=== PATIENT | female | born 1970 | race Two or more races ===

== ENCOUNTER 2016-11-26 01:31 | Emergency (ER) | payer OTHER ==
[~2016-11-26] VITALS: Ht 165.1 cm; Wt 104.3 kg
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
--- NOTE | 2016-11-26 02:29 | NUR ---
X-rays taken. Pt going to CT
--- NOTE | 2016-11-26 02:47 | NUR ---
Back from CT
--- NOTE | 2016-11-26 04:50 | NUR ---
DR. ABREU AT BEDSIDE SPEAKING TO PT REGARDING RESULTS.
--- NOTE | 2016-11-26 04:55 | NUR ---
Patient discharged to home in stable condition. Written and verbal after care instructions given. Patient verbalizes understanding of instruction. ambulatory with a steady gait. instructed pt not to drive. pt accompanied by daughter.
[2016-11-26 04:58] VITALS: BP 128/77
== END 2016-11-26 04:59 | disposition home or self-care (01) ==
LOC: ER 01:35
DX: S00.83XA Contusion of other part of head, initial encounter (principal); F17.200 Nicotine dependence, unspecified, uncomplicated; V49.9XXA Car occupant (driver) (passenger) injured in unspecified traffic accident, initial encounter; Y93.89 Activity, other specified; Y92.89 Other specified places as the place of occurrence of the external cause; Y99.9 Unspecified external cause status
CPT/HCPCS: 70450; 72125; 73060; 73564; 99284; 99406; A4606; Z7610

== ENCOUNTER 2018-05-20 16:20 | Emergency (ER) | payer OTHER ==
[~2018-05-20] VITALS: Ht 165.1 cm; Wt 104.3 kg
[2018-05-20 16:27] VITALS: BP 180/109
--- NOTE | 2018-05-20 16:39 | NUR ---
DR BATRES AT BEDSIDE FOR EVAL
[2018-05-20] MEDS ORDERED: DEXAMETHASONE SOD PHOSPHATE 10 MG/ML VIAL ONE (16:48)
[2018-05-20] MEDS ORDERED: diphenhydrAMINE HCL 50 MG/ML VIAL ONE (16:49)
[2018-05-20] MEDS ORDERED: METOCLOPRAMIDE HCL 10 MG/2 ML VIAL ONE (16:49)
[2018-05-20 16:53] LABS: BASOPHILS # (AUTO) 0.1 /CMM (0.0-0.2); BASOPHILS % (AUTO) 1.3 % (0.0-2.0); HEMATOCRIT 40 % (33-45); HEMOGLOBIN 13.5 g/dL (11.5-14.8); LYMPHOCYTES # (AUTO) 2.5 /CMM (0.8-4.8); LYMPHOCYTES % (AUTO) 28.5 % (20.0-44.0); MEAN CORPUSCULAR HGB CONC 34 g/dl (31.0-36.0); MEAN CORPUSCULAR VOLUME 85 fL (82-100); MONOCYTES # (AUTO) 0.6 /CMM (0.1-1.30); MONOCYTES % (AUTO) 6.3 % (2.0-12.0); NEUTROPHILS # (AUTO) 5.5 /CMM (1.8-8.9); NEUTROPHILS % (AUTO) 61.9 % (43.0-81.0); PLATELET COUNT (AUTO) 411 /CMM (150-450); RED BLOOD CELL COUNT(AUTO) 4.63 MIL/uL (4.0-5.2); WHITE BLOOD COUNT (AUTO) 8.8 K/uL (4.3-11.0)
[2018-05-20] MEDS ORDERED: DEXAMETHASONE SOD PHOSPHATE 10 MG/ML VIAL IV ONE (17:00)
[2018-05-20] MEDS ORDERED: METOCLOPRAMIDE HCL 10 MG/2 ML VIAL IV ONE (17:00)
[2018-05-20] MEDS ORDERED: IV NS 0.9% 1,000 ML BAG IV ONE (17:00)
[2018-05-20] MEDS ORDERED: diphenhydrAMINE HCL 50 MG/ML VIAL IV ONE (17:00)
--- NOTE | 2018-05-20 17:00 | NUR ---
ADDENDUM: Intravenous End Time Documentation: Normal saline 1 liter (IV-WO) : start time: 1700 PM ; end time: 1800 PM: IV site: LAC PIV # 20 Port # 1
[2018-05-20 17:03] LABS: CALCIUM, SERUM 9.4 mg/dL (8.5-10.1); CREATININE 0.7 mg/dL (0.6-1.3); POTASSIUM 3.9 mmol/L (3.5-5.1)
--- NOTE | 2018-05-20 17:05 | NUR ---
PT SIGNED PREGANCY WAIVER FOR CT SCAN. PT HAVE HER MENSTRUATION AT THIS TIME.
--- NOTE | 2018-05-20 17:06 | NUR ---
PT WHEELED TO CT.
--- NOTE | 2018-05-20 17:16 | NUR ---
PT RETRUNED FROM CT
--- NOTE | 2018-05-20 18:02 | NUR ---
Patient discharged to home with family in stable condition. Written and verbal after care instructions given to patient and family. Patient and family verbalizes understanding of instruction.
== END 2018-05-20 18:02 | disposition home or self-care (01) ==
LOC: ER 16:22
DX: G43.909 Migraine, unspecified, not intractable, without status migrainosus (principal); R11.2 Nausea with vomiting, unspecified; R42 Dizziness and giddiness; F17.200 Nicotine dependence, unspecified, uncomplicated
CPT/HCPCS: 36415; 70450; 80048; 85025; 85730; 96361; 96374; 96375; 99284; J1100; J1200; J2765; J7030

== ENCOUNTER 2019-12-22 20:14 | Emergency (ER) | payer OTHER ==
[~2019-12-22] VITALS: Ht 165.1 cm; Wt 100.7 kg
--- NOTE | 2019-12-22 20:30 | NUR ---
PT AAOX4. AMBULATORY WITH STEADY GAIT. BIBSELF C/O COUGH AND FEVER X5 DAYS. PER ASSESSMENT PT TEMP 100.9. PT PLACED ON MONITOR AND PULSE OX. VSS. NO ACUTE DISTRESS NOTED. AWAITING FOR MD FOR EVAL AND ORDERS.
--- NOTE | 2019-12-22 20:35 | NUR ---
LINE INITIATED RAC 20G, BLOOD DRAWN AND SENT TO LAB.
[2019-12-22] MEDS ORDERED: ACETAMINOPHEN ES 500 MG TABLET ONE (20:40)
[2019-12-22] MEDS ORDERED: ACETAMINOPHEN ES 500 MG TABLET PO ONE (21:00)
[2019-12-22] MEDS ORDERED: IV NS 0.9% 500 ML IV ONE (21:00)
[2019-12-22 21:35] LABS: BASOPHILS % (AUTO) 0.7 % (0.0-2.0); EOSINOPHILS % (AUTO) 0.5 % (0.0-6.0); HEMATOCRIT 37 % (33-45); HEMOGLOBIN 12.5 g/dL (11.5-14.8); LYMPHOCYTES # (AUTO) 1.7 /CMM (0.8-4.8); LYMPHOCYTES % (AUTO) 35.1 % (20.0-44.0); MEAN CORPUSCULAR HGB CONC 34 g/dl (31.0-36.0); MEAN CORPUSCULAR VOLUME 84 fL (82-100); MONOCYTES # (AUTO) 0.5 /CMM (0.1-1.30); NEUTROPHILS # (AUTO) 2.5 /CMM (1.8-8.9); NEUTROPHILS % (AUTO) 52.7 % (43.0-81.0); PLATELET COUNT (AUTO) 255 /CMM (150-450); RED BLOOD CELL COUNT(AUTO) 4.45 MIL/uL (4.0-5.2); WHITE BLOOD COUNT (AUTO) 4.8 K/uL (4.3-11.0)
[2019-12-22 21:48] LABS: CALCIUM, SERUM 8.6 mg/dL (8.5-10.1); CARBON DIOXIDE 26 mmol/L (21-32); CHLORIDE 98 mmol/L (98-107); CREATININE 0.7 mg/dL (0.6-1.3); GLUCOSE 81 mg/dL (74-106); POTASSIUM 3.9 mmol/L (3.5-5.1); SODIUM SERUM 133 mmol/L (136-145); UREA NITROGEN, BLOOD 6 mg/dL (7-18)
[2019-12-22 22:03] LABS: ALANINE AMINOTRANSFERASE 48 U/L (12-78); ALBUMIN 3.4 g/dL (3.4-5.0); ALKALINE PHOSPHATASE 89 U/L (46-116); ASPARTATE AMINOTRANSFERASE 42 U/L (15-37); B-TYPE NATRIURETIC PEPTIDE 52 PG/ML (0-125); BILIRUBIN,TOTAL 0.3 mg/dL (0.2-1.0); TOTAL PROTEIN, SERUM 8.2 g/dL (6.4-8.2)
[2019-12-22 22:04] LABS: CREATINE KINASE, TOTAL 53 U/L (26-192); FERRITIN 139 ng/mL (8-388)
[2019-12-22 22:05] LABS: C-REACTIVE PROTEIN 4.1 mg/dL (0.0-0.9)
--- NOTE | 2019-12-22 22:25 | NUR ---
IV removed. Catheter intact and site benign. Pressure and 4x4 applied to site. No bleeding noted.
--- NOTE | 2019-12-22 22:25 | NUR ---
Patient discharged to home in stable condition. Written and verbal after care instructions given. Patient verbalizes understanding of instruction. Pt ambulated out of E.D. in steady gait. vss.
[2019-12-22 22:26] VITALS: BP 128/79
== END 2019-12-22 22:36 | disposition home or self-care (01) ==
LOC: ER 20:14
DX: U07.1 COVID-19 (principal); R07.9 Chest pain, unspecified
CPT/HCPCS: 36415; 71045; 80053; 82550; 82728; 83605; 83615; 83880; 84145; 84484; 85025; 85730; 86140; 87040 ×2; 99284; J7040

== ENCOUNTER 2023-12-05 13:14 | Emergency (ER) | payer OTHER ==
[~2023-12-05] VITALS: Ht 162.6 cm; Wt 92.5 kg
[2023-12-05] MEDS ORDERED: IBUPROFEN 600 MG TABLET ONE (14:20)
[2023-12-05] MEDS: IBUPROFEN 600 MG TABLET PO ONE (14:23)
[2023-12-05 16:14] VITALS: BP 138/86; TEMP 98; O2SAT 100
== END 2023-12-05 16:15 | disposition home or self-care (01) ==
LOC: ER 13:25
DX: S82.891A Other fracture of right lower leg, initial encounter for closed fracture (principal); F17.200 Nicotine dependence, unspecified, uncomplicated; W01.0XXA Fall on same level from slipping, tripping and stumbling without subsequent striking against object, initial encounter; Y93.89 Activity, other specified; Y92.89 Other specified places as the place of occurrence of the external cause; Y99.8 Other external cause status
CPT/HCPCS: 73590-TC; 73610-TC; 73630-TC